=== PATIENT | male | born 1950 | race Caucasian/White ===

== ENCOUNTER → 2019-04-17 | Outpatient (CLI) | payer MEDICARE, BC ==
--- NOTE | 2019-04-17 09:49 | US ---
EXAMINATION TYPE: US kidneys/renal and bladder DATE OF EXAM: 04/17/2019 COMPARISON: NONE CLINICAL HISTORY: R31.9 Hematuria. macroscopic hematuria, painful urination EXAM MEASUREMENTS: Right Kidney: 9.8 x 5.3 x 5.2 cm Left Kidney: 11.4 x 4.0 x 5.0 cm Right Kidney: lower pole anechoic lesion visualized - 1.7 x 0.8 x 0.6 cm Left Kidney: No hydronephrosis or masses seen Bladder: distended, wnl Bilateral Jets seen There is no evidence for hydronephrosis at this point in time. No nephrolithiasis is seen. [facility] roughly 1 cm elongated cyst in the right kidney lower pole level. On a few lesions I am daisy picious for partially exophytic solid mass anteriorly lower pole level towards the beginning of study .. The urinary bladder is anechoic. Bilateral ureteral jets are seen. IMPRESSION: Cannot exclude lower pole solid right renal mass. Given patient's symptoms advise further investigation with multiphase contrast-enhanced CT.
== END | disposition home or self-care (01) ==
LOC: RADUSWWP 08:59
PROVIDERS: ATTEND Urology
DX: R31.9 Hematuria, unspecified (principal); E29.1 Testicular hypofunction
CPT/HCPCS: 36415; 76770; 83002; 84146; 84402; 84403